=== PATIENT | male | born 1995 | race Caucasian/White ===

== ENCOUNTER → 2020-05-23 | Outpatient (CLI) | payer OTHER ==
--- NOTE | 2020-05-23 09:51 | XR ---
Right shoulder HISTORY: S 46.819 D. pain 3 views of the right shoulder Bone mineralization, joint spaces and alignment are maintained. No fracture or dislocation. Right felipe g apex as visualized is normal. impression: No significant bony abnormality is evident.
== END | disposition home or self-care (01) ==
LOC: RADXRMAIN 09:25
PROVIDERS: ATTEND Emergency Medicine
DX: S46.811D Strain of other muscles, fascia and tendons at shoulder and upper arm level, right arm, subsequent encounter (principal); M25.511 Pain in right shoulder